=== PATIENT | male | born 1995 | race Caucasian/White ===

== ENCOUNTER 2021-02-16 15:53 | Emergency (ER) | payer OTHER ==
[2021-02-16 15:58] VITALS: RESP 18; TEMP 98.3
--- NOTE | 2021-02-16 16:27 | ED ---
Skin/Abscess/FB HPI - General Chief complaint: Skin/Abscess/Foreign Body Stated complaint: Rash Time Seen by Provider: 02/16/21 16:09 Source: patient Mode of arrival: ambulatory Limitations: no limitations - History of Present Illness Initial comments: 25-year-old male with history of HIV and general herpes presents to emergency Department with a chief complaint of a rash. Patient reports this started about 2 days ago with small vesicles in the bilateral groin region and the base of the shaft of penis. He reports he noticed some discharge from the region as well as he was trying to clean it up. Patient reports last time he was diagnosed and was on acyclovir for 14 days. Patient reports she is currently at [facility] for rehab for crack cocaine. Patient reports also he has been working out more than usual knees noticed an erythematous rash in the groin region as well along with a foul smell. She denies any dysuria, increased urgency or frequency. Denies hematuria, hematochezia or melena. Denies any penile discharge, testicular swelling or erythema. - Related Data Previous Rx's Medication Instructions Recorded Acyclovir 400 mg PO TID #42 tablet 02/16/21 Terbinafine 1% Cream [LamISIL] 1 applic TOPICAL BID #1 bottle 02/16/21 Allergies Allergy/AdvReac Type Severity Reaction Status Date / Time No Known Allergies Allergy Verified 02/16/21 15:56 Review of Systems ROS Statement: Those systems with pertinent positive or pertinent negative responses have been documented in the HPI. ROS Other: All systems not noted in ROS Statement are negative. Past Medical History Past Medical History: No Reported History Additional Past Medical History / Comment(s): HIV, herpes History of Any Multi-Drug Resistant Organisms: None Reported Past Surgical History: No Surgical Hx Reported Past Psychological History: Anxiety, Bipolar Smoking Status: Current every day smoker Past Alcohol Use History: None Reported Past Drug Use History: None Reported General Exam Limitations: no limitations General appearance: alert, in no apparent distress Head exam: Present: atraumatic, normocephalic, normal inspection Eye exam: Present: normal appearance, PERRL, EOMI Pupils: Present: normal accommodation ENT exam: Present: normal exam, normal oropharynx, mucous membranes moist, TM's normal bilaterally, normal external ear exam Neck exam: Present: normal inspection, full ROM. Absent: tenderness Respiratory exam: Present: normal lung sounds bilaterally. Absent: respiratory distress, wheezes, rales Cardiovascular Exam: Present: regular rate, normal rhythm, normal heart sounds. Absent: systolic murmur GI/Abdominal exam: Present: soft (Small vesicular lesions in the bilateral groin region as well as the base of the penis. There is also erythematous a foul smell in the groin region as well. No palpable lymph nodes.). Absent: distended, tenderness, guarding, rebound Extremities exam: Present: normal inspection, full ROM, normal capillary refill. Absent: tenderness, pedal edema, joint swelling Back exam: Present: normal inspection, full ROM Neurological exam: Present: alert, oriented X3 Psychiatric exam: Present: normal affect, normal mood Skin exam: Present: warm, dry, intact, normal color Course Vital Signs 02/16/21 02/16/21 02/16/21 15:56 17:23 17:30 Temperature 98.3 F 98.3 F 98.3 F Pulse Rate 107 H 105 H 105 H Respiratory 18 18 18 Rate Blood Pressure 122/76 125/79 125/79 O2 Sat by Pulse 98 99 99 Oximetry Medical Decision Making - Medical Decision Making 25-year-old male with history of HIV and genital herpes presents to emergency Department with a chief complaint of a rash. On physical examination, patient appears to have herpetic lesions in the groin region as well as the base of the penis. There also appears to be tinea cruris present along with fall smell due to constant rubbing between the overlying skin tissues along with increased moisture. I will start the patient on 14 days of acyclovir. Patient will also be started on topical terbinafine. I spoke to [facility] who also requested to check his viral load of HIV. This was obtained and the results will be received in 1-2 days. Return parameters discussed the patient was understanding and agreeable. Case discussed with Disposition Clinical Impression: Tinea cruris, Venereal herpes Disposition: HOME SELF-CARE Condition: Stable Instructions (If sedation given, give patient instructions): Genital Herpes Simplex (ED), Jock Itch (ED) Additional Instructions: Take prescribed medication as directed. Keep the groin region dry. Return to emergency department if symptoms worsen. Prescriptions: Acyclovir 400 mg PO TID #42 tablet Terbinafine 1% Cream [LamISIL] 1 applic TOPICAL BID #1 bottle Is patient prescribed a controlled substance at d/c from ED?: No Referrals: None,Stated [Primary Care Provider] - 1-2 days Time of Disposition: 16:27
[2021-02-16] MEDS ORDERED: ACYCLOVIR 800 MG TAB PO STA (17:04)
[2021-02-16 17:24] VITALS: BP 125/79; PULSE 105
[2021-02-17 14:50] LABS: HIV 2 AB Non-Reactive (Non-Reactive); HIV AB P24 REACTIVE (Non-Reactive); HIV P24 AG Non-Reactive (Non-Reactive)
[2021-02-20 07:54] LABS: HIV1D REACTIVE
[2021-02-20 07:55] LABS: HIV2D NONREAC
== END 2021-02-16 17:31 | disposition home or self-care (01) ==
LOC: EC 15:53
DX: B35.6 Tinea cruris (principal); A60.01 Herpesviral infection of penis; F17.200 Nicotine dependence, unspecified, uncomplicated
CPT/HCPCS: 36415; 87389; 87390; 99282

== ENCOUNTER 2021-02-19 18:51 | Emergency (ER) | payer OTHER ==
[2021-02-19 19:04] VITALS: BP 134/88; PULSE 102; RESP 18; TEMP 97.8
[2021-02-19] MEDS ORDERED: LIDOCAINE 2% GEL 30 ML TUBE TOPICAL ONE (19:34)
[2021-02-19] MEDS ORDERED: KETOROLAC 15 MG/ML 1 ML VIAL IM STA (19:34)
--- NOTE | 2021-02-19 19:55 | ED ---
Male Urogenital HPI - General Chief complaint: Urogenital Stated complaint: Male Time Seen by Provider: 02/19/21 19:23 Source: patient Mode of arrival: ambulatory Limitations: no limitations - History of Present Illness Initial comments: 25 year-old male patient with past history significant for HIV and genital herpes, currently at [facility] ER presents for evaluation of increased pain and bleeding from current herpes outbreak. Patient states that he has had lesions for the last 4-5 days. States that he started valtrex 2 days ago. Patient state he has been taking ibuprofen occasionally for pain, but it is getting worse. Patient states he has also had some bleeding from the lesions. Has been wearing a maxi pad. States the lesions are going up into his buttocks. Denies any fever or chills. Denies nausea or vomiting. - Related Data Previous Rx's Medication Instructions Recorded Acyclovir 400 mg PO TID #42 tablet 02/16/21 Terbinafine 1% Cream [LamISIL] 1 applic TOPICAL BID #1 bottle 02/16/21 Ibuprofen [Motrin] 600 mg PO Q8HR PRN #30 tab 02/19/21 Lidocaine 2% Gel [Xylocaine Jelly 1 applic TOPICAL Q6H PRN #15 gm 02/19/21 2%] Allergies Allergy/AdvReac Type Severity Reaction Status Date / Time No Known Allergies Allergy Verified 02/16/21 15:56 Review of Systems ROS Statement: Those systems with pertinent positive or pertinent negative responses have been documented in the HPI. ROS Other: All systems not noted in ROS Statement are negative. Past Medical History Past Medical History: No Reported History Additional Past Medical History / Comment(s): HIV, herpes History of Any Multi-Drug Resistant Organisms: None Reported Past Surgical History: No Surgical Hx Reported Past Psychological History: Anxiety, Bipolar Smoking Status: Current every day smoker Past Alcohol Use History: None Reported Past Drug Use History: None Reported General Exam Limitations: no limitations General appearance: alert, in no apparent distress Respiratory exam: Present: normal lung sounds bilaterally. Absent: respiratory distress, wheezes, rales, rhonchi, stridor Cardiovascular Exam: Present: regular rate, normal rhythm, normal heart sounds. Absent: systolic murmur, diastolic murmur, rubs, gallop, clicks GI/Abdominal exam: Present: soft, normal bowel sounds. Absent: distended, tenderness, guarding, rebound, rigid Rectal exam: Absent: tenderness (no perianal tenderness or swelling noted) exam: Present: other (right groin erythema, moist skin ) Neurological exam: Present: alert, oriented X3, CN II-XII intact Psychiatric exam: Present: normal affect, normal mood Skin exam: Present: warm, dry, intact, normal color. Absent: rash Course Vital Signs 02/19/21 19:01 Temperature 97.8 F Pulse Rate 102 H Respiratory 18 Rate Blood Pressure 134/88 O2 Sat by Pulse 98 Oximetry Medical Decision Making - Medical Decision Making 25-year-old male patient presents to the emergency department today for evaluation of increased pain and bleeding from herpes outbreak lesions. Physical examination did reveal erythema lesions to the right groin and over the perineal region. There is no anal tenderness or swelling. He was given injection of Toradol and lidocaine gel to apply over the painful areas. He is instructed to continue his antiviral medication. He is instructed to follow-up the primary care physician for recheck in 1-2 days. He is given activity limitations for [place]. Return parameters were discussed in detail. He verbalizes understanding and agrees with this plan. Case discussed with my attending Dr. Jurado. Disposition Clinical Impression: Genital herpes Disposition: HOME SELF-CARE Condition: Good Instructions (If sedation given, give patient instructions): Genital Herpes Simplex (ED) Additional Instructions: Use lidocaine jelly for pain relief 3-4 times daily. Use ibuprofen every 6 hours for pain. Continue your antiviral medication. Return for any new, worsening, or concerning symptoms. Prescriptions: Ibuprofen [Motrin] 600 mg PO Q8HR PRN #30 tab PRN Reason: Pain Lidocaine 2% Gel [Xylocaine Jelly 2%] 1 applic TOPICAL Q6H PRN #15 gm PRN Reason: Pain Is patient prescribed a controlled substance at d/c from ED?: No Referrals: None,Stated [Primary Care Provider] - 1-2 days Time of Disposition: 19:54
== END 2021-02-19 20:20 | disposition home or self-care (01) ==
LOC: EC 18:51
DX: A60.00 Herpesviral infection of urogenital system, unspecified (principal); F17.200 Nicotine dependence, unspecified, uncomplicated
CPT/HCPCS: 99283; 96372; J1885

== ENCOUNTER 2024-06-22 19:05 | Inpatient (IN) | payer OTHER ==
[2024-06-23] MEDS ORDERED: MAGNESIUM HYDROXIDE 2,400 MG/30 ML CUP PO PRN (01:57)
[2024-06-23] MEDS ORDERED: IBUPROFEN 600 MG TAB PO PRN (01:57)
[2024-06-23] MEDS ORDERED: ACETAMINOPHEN TAB 325 MG TAB PO PRN (01:57)
[2024-06-23] MEDS ORDERED: MAG HYDROX/AL HYDROX/SIMETH 355 ML BOTTLE PO PRN (01:57)
[2024-06-23] MEDS ORDERED: haloperidoL 5 MG TAB PO PRN (01:59)
[2024-06-23] MEDS ORDERED: HALOPERIDOL LACTATE 5 MG/ML 1 ML VIAL IM PRN (01:59)
[2024-06-23] MEDS ORDERED: LORazepam 2 MG/ML INJ IM PRN (02:00)
[2024-06-23] MEDS: ARIPiprazole 5 MG TAB PO SCH (08:29)
[2024-06-23] MEDS: NICOTINE 14MG/24HR PATCH TRANSDERM SCH (08:29)
[2024-06-23] MEDS: FLUoxetine HCL 20 MG CAP PO SCH (08:29)
[2024-06-23] MEDS: busPIRone HCl 5 MG TAB PO SCH (08:29)
[2024-06-23] MEDS: NON FORMULARY DRUG PO SCH (08:29)
[2024-06-23] MEDS ORDERED: diphenhydrAMINE 25 MG CAP PO PRN (12:19)
--- NOTE | 2024-06-23 12:39 | P.HP ---
Psychiatric H&P - . H&P Date: 06/23/24 History & Physical: Allergies Allergy/AdvReac Type Severity Reaction Status Date / Time No Known Allergies Allergy Verified 06/23/24 01:57 Vital Signs Temp 98.8 F 06/23/24 03:00 Pulse 123 H 06/23/24 03:00 Resp 18 06/23/24 03:00 BP 124/69 06/23/24 03:00 Pulse Ox 99 06/23/24 03:00 FiO2 Intake & Output 06/22/24 06/23/24 06/23/24 18:59 06:59 18:59 Weight 117.8 kg 06/23/24 08:52 IDENTIFYING DATA: Patient is a 28 year old male. Single, no children. Works at a restaurant. Lives alone in an apartment. HPI: Patient presented to the hospital on 06/23, as a direct admit from [facility] in [place]. As per EPS note, "Patient presented to [facility] related to suicide attempt on 06/12/2024 by overdosing on 20 tablets of trazodone. Patient reportedly still having suicidal ideations with a plan. Patient having auditory hallucinations and responding to internal stimuli." Upon today's assessment, he stated that he had relapsed on cocaine and methamphetamines, after being clean for 2 years, and was upset, so he took at least 20-25 trazodone. He states he started throwing up on the porch and sidewalk, and his neighbor told him to call 911. He states that he has alot of PTSD, and trauma surrounding his mother, and her anniversary of her was yesterday. He claims to have bad anxiety. He states he tries to sleep a lot, because he does not like to be around people. He has had passive thoughts of suicide for the past 4 months or so. He states that his parents sold him and his brother into human trafficking. He states his mom and dad were heroin addicts. He states the voices he hears are chitter chatter, and he has always heard the voices, but they are mildly improving. He thought it was stressed induced due to his anxiety. Also states his mother murdered his baby sister. Post Exchange Manager spoke with patient about rehab, patient is already set up with [facility] in [place] for out patient services. Patient denies any current suicidal or homicidal ideations intent or plan. At this time patient endorses auditory, denies visual hallucinations. Patient denies any flight of ideas racing thoughts. Patient's UDS positive for amphetamines, THC and cocaine. Relapsed on cocaine and methamphetamines for 2 days, after 2 years sober. PAST PSYCHIATRIC HISTORY: Patient states that his last psych admission was in 07/26 in [place]. He has had several previous admissions. Patient denies being on any psychiatric medications. Patient denies any previous psychiatric hospitalizations. Patient denies any psychiatric outpatient follow-up. Patient has history of at least 8 suicide attempts in the past. PMH:As per ER note ALLERGIES: as per EMR CHEMICAL DEPENDENCY HISTORY: as per HPI FAMILY PSYCHIATRIC/SUBSTANCE USE HISTORY: mother is schizophrenic and bipolar, father has bipolar. Brother is bipolar. Uncle completed suicide SOCIAL HISTORY: Patient was born and raised in [place], [place]. High school graduate. Works in a restaurant. Single, no children. Lives alone in an apartment. Denies any legal problems. MENTAL STATUS EXAM: General Appearance: Patient appears to be stated age is alert, directable, and attempts to cooperate. Patient appears to have adequate hygiene and grooming. Sh ort in stature, overweight. Wearing a hospital gown. Behavior: Patient is seated without any agitated behavior. Speech: Patient's speech is fluent and nonpressured. Mood/Affect: Patient reports their mood is depressed and anxious, affect is congruent and constricted. Suicidality/Homicidality: Patient denies having any homicidal ideation intent or plan. Denies any suicidal ideations intent or plan Perceptions: Patient denies any visual hallucinations and denies any auditory hallucinations Though content/process: There is no evidence of any delusional thought content and thought process is linear and goal-directed. Memory and concentration: AOX3, grossly intact for the purposes of this session. Can spell "WORLD" backwards Judgment and insight: Poor STRENGTHS/WEAKNESSES: strength is that patient is resilient. Weakness is that patient has poor judgment and is impulsive INTELLECT: Average IMPRESSIONS: suicide attempt by overdose of psychotropic medication psychosis, unspecified hx of bipolar disorder hx of PTSD methamphetamine abuse Cocaine abuse Nicotine dependance Cannabis use disorder PLAN: -Patient is admitted under voluntary status to [facility] for stabilization of psychiatric symptoms and safety. Patient has signed adult voluntary form and medication consent and is placed in patient's chart. -Medications : Will start patient on Abilify 7.5mg daily for psychosis/mood stabilization, D/C prozac, increase prazosin 2mg qhs for nightmares, Lexapro 10mg daily for mood stabilization, increase Buspar 10mg tid for anxiety. Melatonin 10mg qhs for sleep, Benadryl 25mg qhs prn for sleep -Ativan and Haldol PRN for agitation/aggression -Patient was counselled on substance abuse and desired to cut back on use -Patient was informed of the risks, benefits and side effects of the medication and patient verbally consented to taking the medications. -Internal Medicine consult to perform medical evaluation and physical. -NRT -nicotine patch -SW on board for discharge planning. Encourage patient to participate in groups to work on coping skills. Patient currently refusing rehab 06/23/24 11:57 06/23/24 12:37
[2024-06-23] MEDS: ESCITALOPRAM 10 MG TAB PO SCH (12:41)
[2024-06-23] MEDS: LORazepam 1 MG TAB PO PRN (15:42)
[2024-06-23] MEDS: busPIRone HCl 10 MG TAB PO SCH (15:51)
[2024-06-23] MEDS: PRAZOSIN 1 MG CAP PO SCH (20:57)
[2024-06-23] MEDS: MELATONIN 5 MG TABLET PO SCH (20:57)
[2024-06-23] MEDS ORDERED: PRAZOSIN 1 MG CAP PO SCH (21:00)
--- NOTE | 2024-06-24 04:04 | P.MDCNMH ---
History of Present Illness H&P Date: 06/23/24 Chief Complaint: Medical evaluation 28-year-old male with HIV Patient coming in as a transfer from another facility for drug overdose and suicidal attempt. He overdosed on trazodone but started throwing up and his neighbor called 911. Patient admits to auditory hallucinations and suicidal ideation. He otherwise denies any medical concerns denies any fevers chills nausea vomiting chest pain trouble breathing abdominal pain GI bleeding changes in bowel or urinary habits Patient denies tobacco smoking illicit drugs or heavy alcohol. He claims that he has been sober for couple years but then relapsed and used some cocaine. review of systems Pertinent positives as noted in HPI. All other systems were reviewed and are negative on exam Constitutional: No acute distress, conversant Eyes: Anicteric sclerae, moist conjunctiva, Pupils equal round reactive to light ENMT: NC/AT Oropharynx clear, no erythema, or exudates Lungs: Clear to auscultation Clear to percussion Normal respiratory effort, no accessory muscle use Cardiovascular: Heart regular in rate and rhythm, No murmurs, gallops, or rubs No peripheral edema Abdominal: Soft Nontender, no guarding, rebound or rigidity Abdomen moving with respiration Normoactive bowel sounds Extremities: No digital cyanosis No clubbing Pedal pulses intact and symmetrical Radial pulses intact and symmetrical No calf tenderness Psychiatric: Alert and oriented to person, place and time Neuro Muscles Strength 5/5 in all 4 extremities Sensation to light touch grossly present throughout Cranial nerves II-XII grossly intact Past Medical History Past Medical History: No Reported History, Asthma, Seizure Disorder Additional Past Medical History / Comment(s): HIV, herpes,last seizure 2 years ago History of Any Multi-Drug Resistant Organisms: None Reported Past Surgical History: No Surgical Hx Reported Smoking Status: Current every day smoker Medications and Allergies Home Medications Medication Instructions Recorded Confirmed Type Acyclovir 400 mg PO TID #42 tablet 02/16/21 Rx Terbinafine 1% Cream [LamISIL] 1 applic TOPICAL BID #1 bottle 02/16/21 Rx Ibuprofen [Motrin] 600 mg PO Q8HR PRN #30 tab 02/19/21 Rx Lidocaine 2% Gel [Xylocaine Jelly 1 applic TOPICAL Q6H PRN #15 gm 02/19/21 Rx 2%] Allergies Allergy/AdvReac Type Severity Reaction Status Date / Time No Known Allergies Allergy Verified 06/23/24 01:57 Cranial Nerve Examination - Cranial Nerves Cranial Nerve II- Optic: Intact Cranial Nerve III- Oculomotor: Intact Cranial Nerve IV- Trochlear: Intact Cranial Nerve V- Trigeminal: Intact Cranial Nerve - Abducens: Intact Cranial Nerve VII- Facial: Intact Cranial Nerve VIII- Auditory: Intact Cranial Nerve IX- Glossopharyngeal: Intact Cranial Nerve X- Vagus: Intact Cranial Nerve XI- Accessory: Intact Cranial Nerve XII- Hypoglossal: Intact Assessment and Plan Assessment: HIV Check CD4/8 Verify home meds resume antiretroviral therapy once verified History of seizures Verify home medications Patient claims that he has not had a seizure in a while Depression and suicidal ideation Management per psych No labs available for review Thank you for this consultation
[2024-06-24] MEDS: ARIPiprazole 5 MG TAB PO SCH (09:22)
--- NOTE | 2024-06-24 10:27 | P.PN ---
Progress Note - Text Progress Note Date: 06/24/24 Interval history: Patient was seen laying in his bed and was directable and agreeable to speak with singer songwriter. He claims that he is doing a bit better. States that he was able to sleep fairly last night. Claims that he still has not received his HIV medication, claims that his friend is not able to bring it down from [facility]. We spoke about it being requested and ordered and from the pharmacy, he verbally understood. Claims that he is mainly been staying in his room, tolerating medications fairly well, had a fair appetite. At this time patient denies any suicidal or homicidal ideations intent or plan. Denies any Auditory or visual hallucinations. Patient denies any side effects from the medications and has been compliant with meds. Mental status exam: General Appearance: Patient appears to be overweight, stated age is alert, directable, and cooperative. Behavior: No agitated behavior. Patient is calm and directable, fairly superficial Speech: Patient's speech is fluent and nonpressured. Mood/Affect: Mood is improving mildly, affect is congruent and constricted. Suicidality/Homicidality: Patient denies having any suicidal or homicidal ideation intent or plan. Perceptions: Patient denies any auditory or visual hallucinations. Though content/process: There is no evidence of any delusional thought content and thought process is linear and goal-directed. [place] Memory and concentration: AOX3, grossly intact for the purposes of this session Judgment and insight: improving mildly Assessment/Plan: Continue with current diagnosis. Patient continues to meet criteria for inpatient psychiatric admission for symptom stabilization and safety. Patient will be maintained on current psychotropic medication regimen. Card Lacer requested Symtuza to be ordered from the pharmacy, currently awaiting this medication for arrival as patient is not able to have this brought in from [facility]. Monitor for medication compliance and for any psychotropic medication side effects. Will continue to monitor ongoing response to treatment. Encouraged participation in milieu.
[2024-06-25] MEDS: NYSTATIN 100,000 UNIT/ML SUSP 500,000 UNIT/5 ML CUP PO SCH (11:04)
--- NOTE | 2024-06-25 13:53 | P.PN ---
Progress Note - Text Progress Note Date: 06/25/24 Interval history: Patient was seen laying in his bed and was directable and agreeable to speak with business writer. Patient appears to have a brighter affect today. Claims that he is doing better in terms of his mood and anxiety. States that he was able to sleep fairly last night, no overnight issues. Claims that he still has not received his HIV medication. States that he has a fair appetite. At this time patient denies any suicidal or homicidal ideations intent or plan. Denies any Auditory or visual hallucinations. Patient denies any side effects from the medications and has been compliant with meds. Mental status exam: General Appearance: Patient appears to be overweight, stated age is alert, directable, and cooperative. Behavior: No agitated behavior. Patient is calm and directable, improving Speech: Patient's speech is fluent and nonpressured. Mood/Affect: Mood is improving mildly, affect is congruent and constricted. Improving mildly Suicidality/Homicidality: Patient denies having any suicidal or homicidal ideation intent or plan. Perceptions: Patient denies any auditory or visual hallucinations. Though content/process: There is no evidence of any delusional thought content and thought process is linear and goal-directed. [place], improving mildly Memory and concentration: AOX3, grossly intact for the purposes of this session Judgment and insight: improving mildly Assessment/Plan: Continue with current diagnosis. Patient continues to meet criteria for inpatient psychiatric admission for symptom stabilization and safety. Patient will be maintained on current psychotropic medication regimen. Language Tutor requested Symtuza to be ordered from the pharmacy, currently awaiting this medication for arrival. Monitor for medication compliance and for any psychotropic medication side effects. Will continue to monitor ongoing response to treatment. Encouraged participation in milieu. Likely discharge Wednesday, patient will be going back to [facility]hab afterwards.
[2024-06-26 06:42] VITALS: RESP 16
[2024-06-26 10:06] LABS: T4/T8 Ratio (CD4:CD8) 0.5 (1.0-3.7)
--- NOTE | 2024-06-26 11:12 | P.PN ---
Progress Note - Text Progress Note Date: 06/26/24 Interval History: Patient was seen [wandering the hallways] and was directable and agreeable to speak with verse writer in the office. Patient stated that he is doing pretty good this morning. He is no longer endorsing anxiety or depression. He states his thrush is improving. Vice President Fixed Income examined patients mouth, and it does appear to be improving. He stated that he took a nice hot shower last night prior to bedtime, and slept well. His appetite is improving. He is attending groups, and being social on the unit. At this time patient denies any suicidal or homicidal ideations, intent or plan. Patient denies any auditory, visual hallucinations and denies any paranoia or delusions. Patient denies any side effects from the medications and has been compliant with meds. MENTAL STATUS EXAM: General Appearance: Patient appears to be stated age is alert, directable, and attempts to cooperate. Patient appears to have adequate hygiene and grooming. Short in stature, overweight. Wearing a hospital gown. Behavior: Patient is seated without any agitated behavior. Speech: Patient's speech is fluent and nonpressured. Mood/Affect: Patient reports their mood is improved, affect is congruent and constricted. Suicidality/Homicidality: Patient denies having any homicidal ideation intent or plan. Denies any suicidal ideations intent or plan Perceptions: Patient denies any visual hallucinations and denies any auditory hallucinations Though content/process: There is no evidence of any delusional thought content and thought process is linear and goal-directed. Memory and concentration: AOX3, grossly intact for the purposes of this session. Judgment and insight: improving IMPRESSIONS: suicide attempt by overdose of psychotropic medication psychosis, unspecified hx of bipolar disorder hx of PTSD methamphetamine abuse Cocaine abuse Nicotine dependance Cannabis use disorder PLAN: -Patient is admitted under voluntary status to [facility] for stabilization of psychiatric symptoms and safety. Patient has signed adult voluntary form and medication consent and is placed in patient's chart. -Medications : Abilify 7.5mg daily for psychosis/mood stabilization, prazosin 2mg qhs for nightmares, Lexapro 10mg daily for mood stabilization, Buspar 10mg tid for anxiety. Melatonin 10mg qhs for sleep, Benadryl 25mg qhs prn for sleep -Ativan and Haldol PRN for agitation/aggression -NRT -nicotine patch -SW on board for discharge planning. Encourage patient to participate in groups to work on coping skills. Patient currently refusing rehab, likely discharge tomorrow back home.
[2024-06-27 07:32] VITALS: BP 130/82; PULSE 98; TEMP 98.3
--- NOTE | 2024-06-27 11:09 | P.DS ---
Providers Date of admission: 06/23/24 02:57 Expected date of discharge: 06/27/24 Attending physician: Sohail Barlow MD Consults: 06/23/24 02:05 Consult Physician Routine Consulting Provider: Luis Arana Consult Reason/Comments: H&P for mentalhealth admission Do you want consulting provider notified?: Yes Primary care physician: Physician Nonstaff - Discharge Diagnosis(es) (1) Suicide attempt by other psychotropic drug overdose Current Visit: Yes Status: Acute Priority: High (2) Unspecified psychosis Current Visit: Yes Status: Acute Priority: High (3) History of bipolar disorder Current Visit: Yes Status: Acute Priority: Medium (4) History of posttraumatic stress disorder (PTSD) Current Visit: Yes Status: Acute Priority: Medium (5) Methamphetamine abuse Current Visit: Yes Status: Acute Priority: High (6) Cocaine abuse Current Visit: Yes Status: Acute Priority: High (7) Nicotine dependence Current Visit: Yes Status: Acute Priority: Low (8) Cannabis abuse Current Visit: Yes Status: Acute Priority: Medium Hospital Course: Admission HPI: Admission note was completed by telegraphic typewriter installer "Patient presented to the hospital on 06/23, as a direct admit from [facility] in [place]. As per EPS note, "Patient presented to [facility] related to suicide attempt on 06/12/2024 by overdosing on 20 tablets of trazodone. Patient reportedly still having suicidal ideations with a plan. Patient having auditory hallucinations and responding to internal stimuli." Upon today's assessment, he stated that he had relapsed on cocaine and methamphetamines, after being clean for 2 years, and was upset, so he took at least 20-25 trazodone. He states he started throwing up on the porch and sidewalk, and his neighbor told him to call 911. He states that he has alot of PTSD, and trauma surrounding his mother, and her anniversary of her was yesterday. He claims to have bad anxiety. He states he tries to sleep a lot, because he does not like to be around people. He has had passive thoughts of suicide for the past 4 months or so. He states that his parents sold him and his brother into human trafficking. He states his mom and dad were heroin addicts. He states the voices he hears are chitter chatter, and he has always heard the voices, but they are mildly improving. He thought it was stressed induced due to his anxiety. Also states his mother murdered his baby sister. System Safety Engineer spoke with patient about rehab, patient is already set up with [facility] in [place] for out patient services. Patient denies any current suicidal or homicidal ideations intent or plan. At this time patient endorses auditory, denies visual hallucinations. Patient denies any flight of ideas racing thoughts. Patient's UDS positive for amphetamines, THC and cocaine. Relapsed on cocaine and methamphetamines for 2 days, after 2 years sober." Hospital course: Upon admission to the unit patient was directable and agreeable to commence treatment and signed adult voluntary form. Patient was initially isolative however with time and treatment he eventually got along well with other patients on the unit and followed unit protocol. Patient was compliant with the medications and denied any side effects throughout hospital course. Patient was started on Abilify increased to dose of 7.5 mg daily for psychosis/mood stabilization, prazosin increased to dose of 2 mg nightly for nightmares, Lexapro increased to dose of 10 mg daily for mood/anxiety, BuSpar increased to dose of 10 mg 3 times daily for anxiety, melatonin increased to dose of 10 mg nightly for sleep.. Patient spoke of his stressors and engaged in therapy both group and individual. Patient was also seen by medical team for history and physical exam. Throughout the course of the hospitalization patient gradually improved with regards to mood, anxiety, suicidal thoughts, sleep and became more future oriented with improved insight and judgment. On the day of discharge patient denied any suicidal or homicidal ideations intent or plan denied any auditory or visual hallucinations. Patient endorsed wanting to live for his health and family. The patient denied any access to guns or weapons. Patient denied any paranoia and did not endorse any delusions. Patient does have a significant history of substance abuse and was counseled on abstaining from all substances including alcohol and marijuana. Patient was able to get into a sub stance use program, currently awaiting an intake date, this will be after he is discharged home to [place], the substance use program is in [facility] patient was also counseled on the medications and need for regular compliance and was encouraged to follow-up with their outpatient appointment for mental health and also for primary care. composite worker to help with patient's transportation back home to [place]. Mental status exam: General Appearance: Patient appears to be overweight, stated age is alert, pleasant, and cooperative. Patient is in no acute distress and has improved hygiene and grooming Behavior: Patient is calmly seated without any agitated behavior. Speech: Patient's speech is fluent and nonpressured. Mood/Affect: Patient reports their mood is "good", affect is congruent and euthymic. Suicidality/Homicidality: Patient denies having any suicidal or homicidal ideation intent or plan. Perceptions: Patient denies any auditory or visual hallucinations. Though content/process: There is no evidence of any delusional thought content and thought process is linear and goal-directed. More future oriented Memory and concentration: AOX3, grossly intact for the purposes of this session. Can spell "WORLD" backwards correctly. Judgment and insight: improved with guarded prognosis Impression: suicide attempt by overdose of psychotropic medication psychosis, unspecified hx of bipolar disorder hx of PTSD methamphetamine abuse Cocaine abuse Nicotine dependance Cannabis use disorder Plan: -Continue with discharge today as patient has improved and stabilized ps ychiatrically and is not currently an imminent threat to himself and/or others. Patient will remain at chronically elevated risk for harm to self and/or others due to his impulsivity and polysubstance abuse. -Continue medications: Abilify p.o. 7.5 mg daily for psychosis/mood stabilization, prazosin 2 mg nightly for nightmares, Lexapro 10 mg daily for mood/anxiety, BuSpar 10 mg 3 times daily for anxiety, melatonin 10 mg nightly for sleep -Patient was counseled on the need for medication compliance and appropriate follow-up at mental health and also primary care for medical issues. Patient verbalized understanding and agreed. -Social work to help coordinate patient's discharge today, he will be transported back to his home in [place]. He is currently in the process of getting excepted into rehab in [place]. Social work also to arrange for patients follow up appointments with [facility] for psychiatric care along with follow up with primary care provider. -Patient counseled on abstaining from recreational drugs and marijuana and alcohol. Was informed/educated on the adverse effects on their physical and mental health. Patient verbally agreed and understood. -Patient was instructed to return to the hospital or seek immediate medical care if their psychiatric or medical symptoms do worsen or reoccur. Allergies Allergy/AdvReac Type Severity Reaction Status Date / Time No Known Allergies Allergy Verified 06/23/24 01:57 Laboratory Results T-Suppressor Cells 1444 cell/ul (190-832) H 06/24/24 07:08 % CD4 Barton 24 % (35-66) L 06/24/24 07:08 Absolute CD4 Barton 664 cell/ul (443-1471) 06/24/24 07:08 CD4/CD8 Ratio 0.5 (1.0-3.7) L 06/24/24 07:08 % CD8 Suppressor 53 % (9-37) H 06/24/24 07:08 Vital Signs Temp 98.3 F 06/27/24 06:40 Pulse 98 06/27/24 06:40 Resp 16 06/27/24 06:40 BP 130/82 06/27/24 06:40 Pulse Ox 97 06/27/24 06:40 FiO2 Patient Condition at Discharge: Stable Plan - Discharge Summary Discharge Rx Participant: Yes New Discharge Prescriptions: New Nicotine 14Mg/24Hr Patch [Habitrol] 1 patch TRANSDERM DAILY 14 Days #14 patch ARIPiprazole [Abilify] 7.5 mg PO DAILY 30 Days #45 tab busPIRone HCl [Buspar] 10 mg PO TID 30 Days #90 tab Escitalopram [Lexapro] 10 mg PO DAILY 30 Days #30 tab Melatonin 10 mg PO HS 30 Days #60 tab Prazosin [Minipress] 2 mg PO HS 30 Days #60 cap Continue Nystatin 100,000 Unit/ml Susp [Mycostatin Oral Susp] Discontinued Ibuprofen [Motrin] 600 mg PO Q8HR PRN #30 tab PRN Reason: Pain Lidocaine 2% Gel [Xylocaine Jelly 2%] 1 applic TOPICAL Q6H PRN #15 gm PRN Reason: Pain Terbinafine 1% Cream [LamISIL] 1 applic TOPICAL BID #1 bottle Acyclovir 400 mg PO TID #42 tablet Discharge Medication List Nystatin 100,000 Unit/ml Susp [Mycostatin Oral Susp] 06/25/24 [History] ARIPiprazole [Abilify] 7.5 mg PO DAILY 30 Days #45 tab 06/27/24 [Rx] Escitalopram [Lexapro] 10 mg PO DAILY 30 Days #30 tab 06/27/24 [Rx] Melatonin 10 mg PO HS 30 Days #60 tab 06/27/24 [Rx] Nicotine 14Mg/24Hr Patch [Habitrol] 1 patch TRANSDERM DAILY 14 Days #14 patch 06/27/24 [Rx] Prazosin [Minipress] 2 mg PO HS 30 Days #60 cap 06/27/24 [Rx] busPIRone HCl [Buspar] 10 mg PO TID 30 Days #90 tab 06/27/24 [Rx] Follow up Appointment(s)/Referral(s): Training, [facility] [Other] - 07/05/24 2:00 pm (07/06 @ 14:00) Health department, [facility] [Other] - 1 Week Patient Instructions/Handouts: Mood Disorders (DC), Depression (DC), Help Prevent Suicide (DC) Activity/Diet/Wound Care/Special Instructions: Avoid the use of street drugs and alcohol. Take all medications as prescribed. When you are in need of refills on your medications, please contact your medical provider and/or outpatient psychiatrist/provider to have this done. Please go to your scheduled outpatient appointment for aftercare treatment. If symptoms return or become worse, call the crisis line at and/or go to the nearest emergency room for evaluation. National Suicide Hotline 006 Discharge Disposition: HOME SELF-CARE
== END 2024-06-27 12:44 | disposition home or self-care (01) | DRG 751 ==
LOC: 3MHU 06-23 02:57
PROVIDERS: ADMIT Psychiatry & Neurology Psychiatry; ATTEND Psychiatry & Neurology Psychiatry
DX: F29 Unspecified psychosis not due to a substance or known physiological condition (principal); T43.212A Poisoning by selective serotonin and norepinephrine reuptake inhibitors, intentional self-harm, initial encounter; Z21 Asymptomatic human immunodeficiency virus [HIV] infection status; F43.10 Post-traumatic stress disorder, unspecified; F41.9 Anxiety disorder, unspecified; F17.200 Nicotine dependence, unspecified, uncomplicated; F15.10 Other stimulant abuse, uncomplicated; F14.10 Cocaine abuse, uncomplicated; F31.9 Bipolar disorder, unspecified; F12.10 Cannabis abuse, uncomplicated; B37.9 Candidiasis, unspecified; Z28.310 Unvaccinated for COVID-19; Z28.21 Immunization not carried out because of patient refusal; Z71.51 Drug abuse counseling and surveillance of drug abuser; Z71.89 Other specified counseling; Z91.51 Personal history of suicidal behavior; Z79.899 Other long term (current) drug therapy
CPT/HCPCS: 86360